=== PATIENT | male | born 2000 | race Two or more races ===

== ENCOUNTER 2022-10-05 15:11 | Emergency (ER) | payer OTHER ==
[~2022-10-05] VITALS: Ht 175.3 cm; Wt 86.2 kg
== END 2022-10-05 21:02 | disposition home or self-care (01) ==
LOC: EMR PED 15:11 → ER 15:18 → EMR PED 15:18
DX: M79.631 Pain in right forearm (principal); D57.80 Other sickle-cell disorders without crisis